=== PATIENT | male | born 1950 | race Hispanic/Latino ===

== ENCOUNTER → 2018-05-19 | Outpatient (CLI) | payer MEDICARE ==
--- NOTE | 2018-05-19 16:07 | Diagnostic Imaging Report ---
Exam: Thoracic spine 2 views and lumbar spine 4 views History: Back pain Comparison: None. Findings: No acute fracture. Mild multilevel thoracic spondylosis throughout the thoracic spine with scattered anterior osteophytes. No severe focal region of narrowing. Severe lumbar spondylosis at L4-L5 and L5-S1 with endplate sclerosis and severe narrowing. Moderate facet arthrosis. Vascular calcifications. Impression: Multilevel thoracolumbar spondylosis, severe at L4-L5 and L5-S1. Signed by: Dr. Teja Singh M.D. on 05/19/2018 4:03 PM
== END ==
LOC: RAD 14:08
PROVIDERS: ATTEND Internal Medicine
DX: S23.3XXA Sprain of ligaments of thoracic spine, initial encounter (principal); S33.5XXA Sprain of ligaments of lumbar spine, initial encounter
CPT/HCPCS: 72070; 72110

== ENCOUNTER → 2018-07-28 | Outpatient (CLI) | payer MEDICARE ==
--- NOTE | 2018-07-29 08:23 | Diagnostic Imaging Report ---
#[id number] - MGDXBIL #MALE BILATERAL FIRST EVER DIGITAL DIAGNOSTIC MAMMOGRAM WITH CAD: 07/28/2018 No prior exams were available for comparison. Current study contains 4 films. Current study was also evaluated with a Computer Aided Detection (CAD) system. There is an ill defined right subareolar mass. Adjacent calcification is present. There is also a normal appearing 5 mm lymph node deep and lateral to the subareolar mass. IMPRESSION: SUSPICIOUS OF MALIGNANCY A phone call was made to the physician's office and the case discussed with Dr. Chang Donnelly's Glue Size Machine Operator. The patient was notfified of the need for biopsy. Carlin Seligmanellen Canela D.O. cw/:07/28/2018 11:03:08 Aircraft Maintenance Instructor: Alma Rosa PIERRE)(Ginny), [facility] letter sent: Biopsy Required Mammogram BI-RADS: 4c Suspicious abnormality - moderate concern but not classic for malignancy
--- NOTE | 2018-07-29 08:23 | Diagnostic Imaging Report ---
#[id number] - USBRELIMRT ULTRASOUND OF THE RIGHT BREAST : 07/28/2018 Comparison is made to exam dated: 07/28/2018 mammogram - [facility]. Color flow and real-time ultrasound were performed on the right breast in the subareolar region. -There is a hypoechoic mass with irregular margins in the right subareolar region measuring 2.0 x 1.1 x 1.5 cm. Comparison to the contralateral left breast subareolar region reveals normal subareolar tissue. -An ultrasound guided biopsy is recommended. IMPRESSION: SUSPICIOUS OF MALIGNANCY - FOLLOW-UP RECOMMENDED Hypoechoic right breast subareolar mass has a moderate suspicion for malignancy. A phone call was made to the physician's office and the findings/recommendation discussed with Dr. Chang Donnelly's Jet Dyeing Machine Operator. The patient was notifed of the the findings and the need for biopsy. Carlin Cannon Jr., D.O. cw/:07/28/2018 10:51:29 Head Strength And Conditioning Coach: Tom Navarro RDMS, [facility] letter sent: Biopsy Required Ultrasound BI-RADS: 4c Suspicious abnormality - moderate concern but not classic for malignancy
== END ==
LOC: US 08:44
PROVIDERS: ATTEND Internal Medicine
DX: N63.10 Unspecified lump in the right breast, unspecified quadrant (principal)
CPT/HCPCS: 77066

== ENCOUNTER → 2018-12-28 | Outpatient (CLI) | payer MEDICARE ==
[~2018-12-28] MED LIST: IOPAMIDOL 370 MG/ML 200 ML INFUS..BTL INJ ONE; SODIUM CHLORIDE 0.9% 50ML 50 ML ONE
[2018-12-28 10:34] LABS: BLOOD UREA NITROGEN 15 mg/dL (7-26); BUN/CREATININE RATIO 14 (6-25); CREATININE, SERUM 1.05 mg/dL (0.72-1.25); EST GLOMERULAR FILTRATION RATE > 60 ML/MIN (60-)
--- NOTE | 2018-12-28 12:58 | Diagnostic Imaging Report ---
Exam: CT abdomen and pelvis Clinical history: Right lower quadrant pain Technique: Helical images of the abdomen and pelvis were obtained after IV contrast administration DOSE REDUCTION: The exams was performed according to the departmental dose-optimization program which includes automated exposure control, adjustment of the mA and/or kV according to patient size and/or use of iterative reconstruction technique. Findings: The lung bases are clear. There is no evidence of pleural effusion. The cardiac size is within normal limits. The liver, spleen, pancreas, gallbladder, adrenal glands, and kidneys are unremarkable. The small and large bowels are normal in caliber without evidence of obstruction. Appendix is visualized and within normal limits. Mild retained feces are noted in the colon. There is no evidence of lymphadenopathy or free fluid. The aorta and IVC are normal in caliber. Atherosclerotic calcification of the aorta is noted. The bladder, prostate, and seminal vesicles are unremarkable. Impression: 1. No CT evidence of acute appendicitis. 2. Degenerative changes of the lower lumbar spine with loss in disc heights and endplate sclerosis. 3. Scattered subcentimeter lymph nodes noted in the mesentery likely reactive in nature. Signed by: Dr. Travis Linn MD on 12/28/2018 12:54 PM
== END ==
LOC: CT 09:33
PROVIDERS: ATTEND Internal Medicine
DX: R10.31 Right lower quadrant pain (principal); K36 Other appendicitis
CPT/HCPCS: 36415; 74177; 82565; 84520; Q9967

== ENCOUNTER → 2020-09-15 | Outpatient (CLI) | payer MEDICARE | LOC: MRI 13:42 | PROVIDERS: ATTEND Internal Medicine | DX: M47.812 Spondylosis without myelopathy or radiculopathy, cervical region (principal) | CPT/HCPCS: 72141 ==

== ENCOUNTER → 2021-06-22 | Outpatient (CLI) | payer MEDICARE | LOC: RAD 11:53 | PROVIDERS: ATTEND Internal Medicine | DX: R06.02 Shortness of breath (principal) | CPT/HCPCS: 71046 ==

== ENCOUNTER → 2023-11-26 | Day surgery (SDC) | payer MEDICARE ==
[2023-11-21 12:09] LABS: HEMATOCRIT 36.3 % (38.2-49.6); HEMOGLOBIN 11.1 g/dL (14.0-18.0); MEAN CORPUSCULAR HEMOGLOBIN 26.6 pg (28-32); MEAN CORPUSCULAR HGB CONC 30.6 g/dL (31-35); MEAN CORPUSCULAR VOLUME 87.1 fL (81-99); PLATELET COUNT 267 x10e3/uL (140-360); RED BLOOD COUNT 4.17 x10e6/uL (4.3-5.7); RED CELL DISTRIBUTION WIDTH 15.1 % (11.7-14.4); WHITE BLOOD COUNT 8.87 x10e3/uL (4.8-10.8)
[2023-11-21 12:10] LABS: BASOPHILS # (AUTO) 0.1 (0.0-0.1); BASOPHILS % 0.8 % (0.0-1.0); EOSINOPHILS # (AUTO) 0.3 (0.0-0.4); EOSINOPHILS % 3.7 % (0.0-6.0); LYMPHOCYTES # (AUTO) 3.6 (1.0-3.2); LYMPHOCYTES % 40.6 % (18.0-39.1); MONOCYTES # (AUTO) 0.6 (0.2-0.8); MONOCYTES % 6.4 % (4.4-11.3); NEUTROPHILS # (AUTO) 4.3 (2.1-6.9); NEUTROPHILS % 48.3 % (38.7-80.0)
[2023-11-21 12:36] LABS: ANION GAP 18.1 mmol/L (8-16); CREATININE, SERUM 1.03 mg/dL (0.72-1.25); POTASSIUM 4.1 mmol/L (3.5-5.1)
[2023-11-21 12:37] LABS: CALCIUM 8.8 mg/dL (8.4-10.2)
[~2023-11-26] MED LIST changes: +ACETAMINOPHEN 1000 MG/100 ML IV ONE; +AMLODIPINE BESY10 MG PO; +ASPIRIN81 MG PO; +BUPIVACAINE 0.25% 30ML SDV ONE; +DEXAMETHASONE SOD PHOS INJ 4 MG/ML SDV ONE; +DEXMEDETOMIDINE HCL 200 MCG/2 ML VIAL ONE; +DOXAZOSIN MESYLA2 MG PO; +EPHEDRINE SULFATE INJ 50 MG/ML VIAL ONE; +FENTANYL CITRATE/PF 100MCG/2 ML INJ ONE; +FERROUS SULFAT325 MG PO; +FINASTERIDE5 MG PO; +FOLIC ACID0.4 MG PO; +GABAPENTIN300 MG PO; +GLIMEPIRIDE2 MG PO; +HYDROCHLOROTHIA25 MG PO; -IOPAMIDOL 370 MG/ML 200 ML INFUS..BTL INJ ONE; +KETOROLAC TROMETHAMINE 30 MG/ML VIAL ONE; +LACTATED RINGER'S 1,000 ML ONE; +LIDOCAINE 1% W/EPINEPHRINE 20 ML VIAL ONE; +LIDOCAINE HCL 2% LOCAL INJ 5 ML SDV VIAL INJ ONE; +LIPITOR10 MG PO; +LOSARTAN POTAS100 MG PO; +METFORMIN HCL500 MG PO; +METOPROLOL SUCC25 MG PO; +OMEPRAZOLE40 MG PO; +ONDANSETRON HCL INJ 2MG/ML 2ML 2 MG/ML VIAL ONE; +PROPOFOL IV EMULSION 10 MG/ML 20 ML VIAL ONE; +ROCURONIUM BROMIDE 10 MG/ML 5ML VIAL IV ONE; +RYBELSUS7 MG PO; +SEVOFLURANE INHAL SOLN 250 ML PEN BTL ONE; -SODIUM CHLORIDE 0.9% 50ML 50 ML ONE; +SUGAMMADEX SODIUM 200 MG/2 ML VIAL IV ONE
[2023-11-26] MEDS: HYDROCODONE/APAP 7.5MG-325MG 1 EA TAB ONE (12:29)
[2023-11-26 12:30] VITALS: BP 132/64; PULSE 70; RESP 18; O2SAT 97
== END | disposition home or self-care (01) ==
LOC: OR 07:21
PROVIDERS: ATTEND Surgery
DX: K42.0 Umbilical hernia with obstruction, without gangrene (principal); I10 Essential (primary) hypertension; E11.9 Type 2 diabetes mellitus without complications; E78.5 Hyperlipidemia, unspecified; K21.9 Gastro-esophageal reflux disease without esophagitis; Z01.812 Encounter for preprocedural laboratory examination; Z79.82 Long term (current) use of aspirin; Z79.84 Long term (current) use of oral hypoglycemic drugs; Z79.85 Long-term (current) use of injectable non-insulin antidiabetic drugs; Z79.899 Other long term (current) drug therapy
CPT/HCPCS: 36415; 49594; 80048; 85025; C1781; J0131; J1100; J1885; J2001; J2405; J2704; J3010; J7121